=== PATIENT | male | born 1985 | race Caucasian/White ===

== ENCOUNTER 2017-12-03 10:12 | Inpatient (IN) | payer MEDICAID, OTHER ==
[~2017-12-03] VITALS: Ht 188 cm; Wt 147.4 kg
[~2017-12-03 10:12] MED LIST: IBUP-2269 PO
--- NOTE | 2017-12-03 10:26 | NUR ---
DR SANDRA AT THE BEDSIDE FOR MSE.
--- NOTE | 2017-12-03 11:08 | NUR ---
PAGED DR NYE FOR ADMIT, AWAITING CALL BACK.
--- NOTE | 2017-12-03 11:16 | NUR ---
MD AWARE OF PT'S ELEVATED BP, NO ORDERED RECIEVED.
[2017-12-03 11:29] LABS: BASOPHILS # (AUTO) 0.1 K/uL (0.0-8.0); EOSINOPHILS # (AUTO) 0.4 K/uL (0.0-0.7); EOSINOPHILS % (AUTO) 5.5 % (0.0-7.0); HEMATOCRIT 40.9 % (36.7-47.1); HEMOGLOBIN 13.5 g/dL (12.5-16.3); LYMPHOCYTES # (AUTO) 1.2 K/uL (20.0-40.0); LYMPHOCYTES % (AUTO) 15.2 % (20.5-51.5); MEAN CORPUSCULAR HEMOGLOBIN 29.5 uug (23.8-33.4); MEAN CORPUSCULAR HGB CONC 33 g/dL (32.5-36.3); MEAN CORPUSCULAR VOLUME 89.2 fL (73.0-96.2); MONOCYTES # (AUTO) 0.4 K/uL (2.0-10.0); MONOCYTES % (AUTO) 5.4 % (0.0-11.0); NEUTROPHILS # (AUTO) 5.6 K/uL (1.8-8.9); NEUTROPHILS % (AUTO) 72.9 % (38.5-71.5); PLATELET COUNT (AUTO) 216 K/uL (152-348); RED BLOOD CELL COUNT(AUTO) 4.58 MIL/uL (4.06-5.63); WHITE BLOOD COUNT (AUTO) 7.7 K/uL (3.6-10.2)
[2017-12-03 11:39] LABS: CREATININE 1.2 mg/dL (0.6-1.3); POTASSIUM 3.6 mmol/L (3.5-5.1)
[2017-12-03 11:54] LABS: BILIRUBIN,DIRECT 0.7 mg/dL (0.0-0.2); BILIRUBIN,TOTAL 1.7 mg/dL (0.2-1.0); TOTAL PROTEIN, SERUM 6.8 g/dL (6.4-8.2)
--- NOTE | 2017-12-03 12:10 | NUR ---
RECEIVED REPORT FROM ER NURSE, SAID THAT PATIENT WILL BE UP IN 20 MINS, DR MERRITT AWARE.
[2017-12-03] MEDS ORDERED: FUROSEMIDE 20 MG/2 ML VIAL IV ONE (12:15)
[2017-12-03] MEDS ORDERED: NITROGLYCERIN OINT 1 GM PACKET TP ONE ×2 (12:15→12:17)
[2017-12-03] MEDS ORDERED: FUROSEMIDE 40 MG/4 ML VIAL ONE (12:17)
[2017-12-03 12:45] VITALS: BP 172/119
--- NOTE | 2017-12-03 12:45 | NUR ---
RECEIVED PATIENT FROM ER VIA [facility] IN STABLE CONDITION. ABLE TO AMBULATE INDEPENDENTLY. C/O SOB, O2 SAT 94-97 ON ROOM AIR. OFFERED O2, BUT PT REFUSED SAID IT DOESNT DO ANYTHING. BLOOD PRESSURE STILL ELEVATED 172/119. NURSING ADMISSION ASSESSMENTS DONE. INFORMED DR MERRITT THAT PATIENT IS IN ROOM. WILL CONTINUE TO MONITOR.
[2017-12-03 15:14] VITALS: BP 143/89
[2017-12-03 15:22] LABS: *BILIRUBIN,URIN NEGATIVE (NEGATIVE); *BLOOD, URINE NEGATIVE (NEGATIVE); *CLARITY,URINE CLEAR (CLEAR); *COLOR,URINE YELLOW (YELLOW); *KETONES,URINE NEGATIVE (NEGATIVE); *PROTEIN,URINE 2+ (NEGATIVE); LEUKOCYTE ESTERASE ,URINE NEGATIVE (NEGATIVE); NITRITE, URINE NEGATIVE (NEGATIVE); PH,URINE 6.5 (5.0-8.0); UGLUCOSE NEGATIVE (NEGATIVE)
[2017-12-03 15:32] LABS: MUCUS,URINE FEW /LPF (0-FEW); WBC,URINE 0-3 /HPF (0-3)
[2017-12-03] MEDS: ALBUTEROL SULFATE 1.25 MG/3 ML NEBU NEB PRN ×2 (17:07→19:37)
--- NOTE | 2017-12-03 17:30 | NUR ---
PATIENT COMPLAINED OF SOB, GASPING FOR AIR, ANS IS WHEEZING, SAYS THAT ASTHMA IS ACTING UP. O2 SAT [address] INFOR[address] MERRITT WITH ORDERS FOR VENTOLIN UNIT DOSE Q4PRN. ORDERS NOTED AND CARRIED OUT. WILL CONTIUE TO MONITOR CLOSELY.
[2017-12-03] MEDS ORDERED: CARVEDILOL 6.25 MG TABLET PO SCH (19:00)
[2017-12-03] MEDS ORDERED: MORPHINE SULFATE 2 MG/1 ML DISP.SYRIN IV PRN (19:00)
[2017-12-03] MEDS ORDERED: LORAZEPAM 2 MG/1 ML VIAL IV PRN (19:00)
[2017-12-03] MEDS ORDERED: ONDANSETRON 4 MG/2 ML VIAL IV PRN (19:00)
[2017-12-03] MEDS ORDERED: ACETAMINOPHEN 325 MG TABLET PO PRN (19:00)
--- NOTE | 2017-12-03 19:18 | NUR ---
PATIENT STATED THAT HE STILL CAN'T BREATH AND IS FEELING SHORT OF BREATH, CHECKED O2 SAT 94-97%. PATIENT LOOKS ANXIOUS. ADMINISTERED ATIVAN 0.5 MG PRN. WILL CONTINUE TO MONITOR.
[2017-12-03 19:19] LABS: *AMPHETAMINE, URINE POSITIVE (NEGATIVE); *BARBITURATE, URINE NEGATIVE (NEGATIVE); *CANNABINOID, URINE NEGATIVE (NEGATIVE); *COCCAINE, URINE NEGATIVE (NEGATIVE); *OPIATE, URINE NEGATIVE (NEGATIVE); *PHENCYCLIDINE SCREEN,URINE NEGATIVE (NEGATIVE)
--- NOTE | 2017-12-03 19:30 | NUR ---
PT IN ROOM ALERT AWAKE WITH PERIODS OF SOB. REMINDED PT TO KEEP OXYGEN ON TO PREVENT RESP DISTRESS. SINUS TACHY NOTED ON TELEMETRY WITH 106 HR. FAMILY REQUESTING TO SEE MD. DR NYE MADE AWARE. CALL LIGHT PLACED WITHIN REACH. PLAN OF CARE GIVEN FOR THE NIGHT TO PT/FAMILY. VERBALIZED UNDERSTANDING.
[2017-12-03 20:00] VITALS: BP 157/106
[2017-12-03] MEDS: ENOXAPARIN SODIUM 40 MG/0.4 ML DISP.SYRIN SQ SCH (20:15)
[2017-12-03] MEDS: ZOLPIDEM 5 MG TABLET PO PRN (20:15)
[2017-12-03] MEDS ORDERED: CARVEDILOL 6.25 MG TABLET PO ONE (20:38)
[2017-12-03] MEDS ORDERED: ASPIRIN EC 325 MG TABLET.DR PO ONE (20:45)
[2017-12-03] MEDS ORDERED: FUROSEMIDE 20 MG/2 ML VIAL IV SCH (21:00)
[2017-12-03] MEDS ORDERED: POTASSIUM CHLORIDE 20 MEQ TAB.PRT.SR PO ONE (21:15)
[2017-12-03] MEDS ORDERED: CLOPIDOGREL 75 MG TABLET PO ONE (21:15)
[2017-12-03] MEDS ORDERED: CLONIDINE HCL 0.1 MG TABLET PO PRN (21:15)
[2017-12-03 21:45] LABS: ABG BASE EXCESS -1.7 mmol/L; ABG HCO3 22.3 mmol/L; ABG PCO2 35.5 mmHg (35.0-45.0); ABG PH 7.415 (7.350-7.450); ABG PO2 62.3 mmHg (75.0-100.0); ABG SITE RIGHT RADIAL; ABG TOTAL HEMOGLOBIN 13.8 G/dL (13.5-18.0); COHb 1.6 % (0.5-1.5); MetHb 0.4 % (0.0-1.5); O2Hb 89.7 % (94.0-97.0); VENT MODE Room Air
[2017-12-03] MEDS ORDERED: CLOPIDOGREL 75 MG TABLET ONE (21:58)
[2017-12-03] MEDS: FAMOTIDINE 20 MG TABLET PO SCH (22:02)
[2017-12-03] MEDS: ATORVASTATIN 40 MG TABLET PO SCH (22:03)
[2017-12-04 00:45] VITALS: BP 134/97
--- NOTE | 2017-12-04 01:00 | NUR ---
PT NOTED WITH PERIODS OF ANXIOUSNESS AND NOT MUCH SLEEP. NO RESP DISTRESS AT THIS TIME. RECENT O2 SAT NOTED 93% ON 6L/MIN VIA N/C. CONTINUE TO MONITOR.
[2017-12-04] MEDS: LORAZEPAM 2 MG/1 ML VIAL IV PRN ×4 (02:50→21:37)
[2017-12-04 04:00] VITALS: BP 125/88
--- NOTE | 2017-12-04 05:30 | NUR ---
PT SLEEPING AT THIS TIME IN NO RESP DISTRESS. SINUS RHYTHM NOTED WITH 93 BPM. OXYGEN SAT NOTED 92% WITH 6L/MIN VIA N/C. MOTHER AT BEDSIDE. ABP 125/88. ABLE TO SLEEP D/T RECENT ATIVAN GIVEN. CONTINUE TO MONITOR.
[2017-12-04 06:30] LABS: ABG BASE EXCESS -1.3 mmol/L; ABG HCO3 23.4 mmol/L; ABG PCO2 39.2 mmHg (35.0-45.0); ABG PH 7.393 (7.350-7.450); ABG PO2 61.2 mmHg (75.0-100.0); ABG SITE RIGHT RADIAL; ABG TOTAL HEMOGLOBIN 12.9 G/dL (13.5-18.0); COHb 1.7 % (0.5-1.5); MetHb 0.4 % (0.0-1.5); O2Hb 88.8 % (94.0-97.0); VENT MODE Nasal Cannula
--- NOTE | 2017-12-04 06:53 | NUR ---
ABGs OBTAINED BY RT. PT NEEDS FREQUENT REMINDERS TO KEEP OXYGEN ON. PT NOW ON 10L VIA NONREBREATHER MASK. CONTINUE TO MONITOR.
[2017-12-04] MEDS: LEVALBUTEROL HCL NEB 0.63 MG/3 ML NEBU NEB PRN ×2 (07:29→11:22)
[2017-12-04 07:40] LABS: THYROID STIMULATING HORMONE 2.422 mIU/mL (0.358-3.740)
[2017-12-04 07:51] LABS: BILIRUBIN,TOTAL 1.9 mg/dL (0.2-1.0); CREATININE 1.3 mg/dL (0.6-1.3); PHOSPHOROUS 4.5 mg/dL (2.5-4.9); POTASSIUM 4.3 mmol/L (3.5-5.1); TOTAL PROTEIN, SERUM 6.6 g/dL (6.4-8.2)
[2017-12-04 07:52] LABS: BASOPHILS # (AUTO) 0.1 K/uL (0.0-8.0); BASOPHILS % (AUTO) 0.9 % (0.0-2.0); EOSINOPHILS # (AUTO) 0.6 K/uL (0.0-0.7); EOSINOPHILS % (AUTO) 6.8 % (0.0-7.0); HEMATOCRIT 39.7 % (36.7-47.1); HEMOGLOBIN 13.2 g/dL (12.5-16.3); LYMPHOCYTES # (AUTO) 1.3 K/uL (20.0-40.0); LYMPHOCYTES % (AUTO) 16.2 % (20.5-51.5); MEAN CORPUSCULAR HEMOGLOBIN 29.7 uug (23.8-33.4); MEAN CORPUSCULAR HGB CONC 33 g/dL (32.5-36.3); MEAN CORPUSCULAR VOLUME 89.4 fL (73.0-96.2); MONOCYTES # (AUTO) 0.5 K/uL (2.0-10.0); MONOCYTES % (AUTO) 6.4 % (0.0-11.0); NEUTROPHILS # (AUTO) 5.6 K/uL (1.8-8.9); NEUTROPHILS % (AUTO) 69.7 % (38.5-71.5); PLATELET COUNT (AUTO) 212 K/uL (152-348); RED BLOOD CELL COUNT(AUTO) 4.44 MIL/uL (4.06-5.63); WHITE BLOOD COUNT (AUTO) 8.1 K/uL (3.6-10.2)
--- NOTE | 2017-12-04 07:55 | NUR ---
Awake, alert, on moderate high back rest. O2 at 10L/mask with O2 sat of 98%. HHN given. BLE +3 edema. Father at bedside, expressed concern, supportive. Tele SR [id number]
[2017-12-04] MEDS ORDERED: CARVEDILOL 12.5 MG TABLET PO SCH (08:00)
[2017-12-04] MEDS: ASPIRIN 325 MG TABLET PO SCH (08:42)
[2017-12-04] MEDS: FAMOTIDINE 20 MG TABLET PO SCH ×2 (08:42→20:00)
[2017-12-04] MEDS ORDERED: FAMOTIDINE 20 MG TABLET PO SCH (09:00)
[2017-12-04] MEDS ORDERED: FUROSEMIDE 40 MG/4 ML VIAL IV SCH (09:00)
--- NOTE | 2017-12-04 09:00 | NUR ---
Patient's condition and lab report relayed to Dr. Martinez with orders for CTA Chest. Consent signed by patient
[2017-12-04] MEDS ORDERED: IOHEXOL 350 100 ML INFUS..BTL ONE ×2 (09:29→10:40)
[2017-12-04] MEDS ORDERED: IV NORMAL SALINE 100 ML ONE (09:29)
--- NOTE | 2017-12-04 11:00 | NUR ---
CTA Chest done
--- NOTE | 2017-12-04 11:21 | NUR ---
Still with shortness of breath, called RT for HHN treatment. Restless and anxious. Ativan 1mg IV given.
[2017-12-04 11:44] VITALS: BP 110/71
[2017-12-04] MEDS: LEVALBUTEROL HCL NEB 0.63 MG/3 ML NEBU NEB SCH ×4 (12:49→22:58)
[2017-12-04] MEDS: IPRATROPIUM BROMIDE 0.5 MG/2.5 ML NEBU NEB SCH ×4 (12:49→22:58)
[2017-12-04] MEDS ORDERED: LORAZEPAM 2 MG/1 ML VIAL IV ONE (13:15)
--- NOTE | 2017-12-04 13:16 | NUR ---
Still with shortness of breath at 10L/mask and HHN given. Echo cardiogram done at bedside. Still restless after Ativan with orders for additional dose, given.
--- NOTE | 2017-12-04 15:00 | NUR ---
Sleeping, comfortable. O2 at 10L/mask on with O2 sat at 96%
[2017-12-04 15:42] VITALS: BP_SYST 108; BP_DIAS 73; BP_DIAS 82
[2017-12-04] MEDS: FUROSEMIDE 40 MG/4 ML VIAL IV SCH (18:07)
--- NOTE | 2017-12-04 18:38 | NUR ---
Restless. Ativan 1 mg IV given as ordered. O2 at 10L/mask, re instructed to wear. Family at bedside
--- NOTE | 2017-12-04 19:30 | NUR ---
PT MAINTAINING OXYGEN USING MASK SAT AT 97% ON 10L/MIN. PT REMINDED TO KEEP OXYGEN MASK ON TO PREVENT SOB. SINUS RHYTHM NOTED AT THIS TIME WITH V/S WNL. HOB ELEVATED AND ENCOURAGED PT TO USE URINAL WHEN POSSIBLE IN NEEDING TO VOID. FAMILY AT BEDSIDE. WILL CONTINUE TO MONITOR. ROUTINE BREATHING TX ON HAND AT THIS TIME.
[2017-12-04 20:00] VITALS: BP 127/89
[2017-12-04] MEDS: ATORVASTATIN 40 MG TABLET PO SCH (20:00)
[2017-12-04] MEDS: LISINOPRIL 10 MG TABLET PO SCH (20:02)
[2017-12-04] MEDS: ENOXAPARIN SODIUM 40 MG/0.4 ML DISP.SYRIN SQ SCH (20:03)
--- NOTE | 2017-12-04 21:30 | NUR ---
PT'S OXYGEN SATURATION INCREASED TO 15L VIA NONREBREATHING MASK. OXYGEN SATURATION MAINTAINED 94-97% PT APPEARS RESTLESS WITH PERIODS OF ANXIETY. ATIVAN 1MG GIVEN IV. ABLE TO TAKE ALL HS ROUTINE MEDICATIONS WITHOUT DIFFICULTY. PT NEEDS FREQUENT REMINDERS TO KEEP OXYGEN MASK ON. PT NOTED SOMETIMES NONCOMPLIANT REMOVING. MOTHER AT BEDSIDE. CALL LIGHT WITHIN REACH. WILL CONTINUE TO MONITOR.
[2017-12-04] MEDS: ZOLPIDEM 5 MG TABLET PO PRN (22:44)
--- NOTE | 2017-12-04 23:02 | NUR ---
PT ON 10L/MIN VIA MASK AT 97% OXGEN SAT.
--- NOTE | 2017-12-04 23:15 | NUR ---
O2 SAT NOTED 80-88%. PT BACK ON NON REBREATHER MASK AT 15L/MIN.
[2017-12-05] VITALS: BP 105/63
[2017-12-05] MEDS: methylPREDNISolone SOD SUCC 40 MG/ML VIAL IV SCH ×4 (00:23→21:58)
[2017-12-05] MEDS: FUROSEMIDE 40 MG/4 ML VIAL IV SCH ×3 (00:59→16:53)
[2017-12-05] MEDS ORDERED: LEVOFLOXACIN 750MG/D5W 150 ML IV ONE (01:16)
[2017-12-05] MEDS: LEVOFLOXACIN 750MG/D5W 750 MG in PREMIXED 1 EACH IV SCH ×2 (01:24→22:00)
[2017-12-05] MEDS: LORAZEPAM 2 MG/1 ML VIAL IV PRN (01:50)
[2017-12-05 04:00] VITALS: BP 125/72
[2017-12-05] MEDS: LEVALBUTEROL HCL NEB 0.63 MG/3 ML NEBU NEB SCH ×6 (04:02→23:09)
[2017-12-05] MEDS: IPRATROPIUM BROMIDE 0.5 MG/2.5 ML NEBU NEB SCH ×6 (04:02→23:09)
--- NOTE | 2017-12-05 06:43 | NUR ---
Patient noncompliant with keeping nonrebreather mask on. Desat to low as 78%. Reminded pt to keep mask on. Mother and father at bedside alternating holding mask to face. Saturation is 94-98% with nonrebreather mask on at 15L. Reminded pt to use urinal for safety reasons as well as because pt desats when he gets up to the bathroom to urinate due to Lasix dosafe increase. Patient refuses to use urinal despite urging from family and staff.
--- NOTE | 2017-12-05 08:31 | NUR ---
Went in to fix tele box, not showing up on monitor. Pt sleeping and mother asked to not wake him since he did not sleep all night. educated on risk to not being monitored verbalized understanding. will continue to monitor
--- NOTE | 2017-12-05 08:48 | NUR ---
refusing labs at this time
[2017-12-05] MEDS: LISINOPRIL 10 MG TABLET PO SCH ×2 (09:00→21:58)
[2017-12-05] MEDS: ASPIRIN 325 MG TABLET PO SCH (09:29)
[2017-12-05] MEDS: FAMOTIDINE 20 MG TABLET PO SCH ×2 (09:29→21:57)
[2017-12-05 09:31] VITALS: BP 118/70
[2017-12-05 10:05] LABS: BASOPHILS % (AUTO) 0.2 % (0.0-2.0); HEMATOCRIT 40.8 % (36.7-47.1); HEMOGLOBIN 13.7 g/dL (12.5-16.3); LYMPHOCYTES # (AUTO) 0.4 K/uL (20.0-40.0); LYMPHOCYTES % (AUTO) 5.3 % (20.5-51.5); MEAN CORPUSCULAR HEMOGLOBIN 29.8 uug (23.8-33.4); MEAN CORPUSCULAR HGB CONC 34 g/dL (32.5-36.3); MEAN CORPUSCULAR VOLUME 88.9 fL (73.0-96.2); MONOCYTES % (AUTO) 0.5 % (0.0-11.0); NEUTROPHILS # (AUTO) 7.9 K/uL (1.8-8.9); PLATELET COUNT (AUTO) 242 K/uL (152-348); RED BLOOD CELL COUNT(AUTO) 4.59 MIL/uL (4.06-5.63); WHITE BLOOD COUNT (AUTO) 8.4 K/uL (3.6-10.2)
[2017-12-05 10:14] LABS: CREATININE 1.4 mg/dL (0.6-1.3); PHOSPHOROUS 4.9 mg/dL (2.5-4.9)
[2017-12-05 11:15] VITALS: BP 138/89
--- NOTE | 2017-12-05 11:23 | NUR ---
Pt complains of severe abdominal pain. grasping left lower abdomen, restless and moaning. Pain medication given will endorse to MD.
--- NOTE | 2017-12-05 11:35 | NUR ---
pt non complaint, removing face mask, removed tele box. Very agitated and yelling at parents
[2017-12-05] MEDS ORDERED: MORPHINE SULFATE 2 MG/1 ML DISP.SYRIN IV PRN (12:00)
--- NOTE | 2017-12-05 12:19 | NUR ---
pT STILL MOANING, ASKED HOW PAIN WAS PT STATED IT IS THE SAME, EXPLAINED THAT DR ORDERED MORE MORPHINE. PT SAID HE WILL DEAL WITH THE PAIN AND DOES NOT WANT ANY MORPHINE BECAUSE "IT IS ADDICTING" AND HE IS "TRYING TO GET AWAY FROM THAT STUFF"
[2017-12-05] MEDS ORDERED: HYDROCODONE/APAP 10-325 MG TABLET PO ONE (14:15)
[2017-12-05 16:04] VITALS: BP 115/55
[2017-12-05] MEDS: FLUTICASONE/VILANTEROL 1 EACH BLST.W.DEV INH SCH (16:08)
--- NOTE | 2017-12-05 16:09 | NUR ---
abad duran given now, pharmacy just brought
--- NOTE | 2017-12-05 18:07 | NUR ---
Patient has become more compliant, wearing tele monitor as ordered, removes face mask from time to time but sat 90% on RA. Family remains at bedside, denies pain since previous episode. Call light in reach will continue to monitor
--- NOTE | 2017-12-05 19:30 | NUR ---
Patient refusing monitoring and evaluation advisor at this time. Per report, patient has been NSR with no ectopy. Education attempted, however patient passive and refusing at this time. Will attempt again at later time. Addendum: 12/05/17 at 2031 by HONORIO SKINNER RN Instruction provided, patient cooperative.
--- NOTE | 2017-12-05 20:00 | NUR ---
Patient returned from walking with mother. Currently sitting in bed, cooperative and in positive mood, laughing and joking. States he feels much better since yesterday and denies any pain or SOB. No signs of acute distress. chronometer assembler placed, sinus tach with HR of 108 after recent ambulation, continue to monitor. On room air, SpO2 92-94%. SBAR report received from Rosendo Vuong RN at beginning of shift. Will continue plan of care.
[2017-12-05 20:24] VITALS: BP 153/101
[2017-12-05] MEDS: ATORVASTATIN 40 MG TABLET PO SCH (21:57)
[2017-12-05] MEDS: ENOXAPARIN SODIUM 40 MG/0.4 ML DISP.SYRIN SQ SCH (21:58)
[2017-12-05] MEDS: MORPHINE SULFATE 4 MG/1 ML DISP.SYRIN IV PRN (22:54)
[2017-12-06] VITALS: BP 118/88
[2017-12-06] MEDS: FUROSEMIDE 40 MG/4 ML VIAL IV SCH ×3 (00:42→15:45)
[2017-12-06] MEDS: IPRATROPIUM BROMIDE 0.5 MG/2.5 ML NEBU NEB SCH ×6 (03:12→23:06)
[2017-12-06] MEDS: LEVALBUTEROL HCL NEB 0.63 MG/3 ML NEBU NEB SCH ×6 (03:12→23:06)
[2017-12-06 04:00] VITALS: BP 123/85
[2017-12-06] MEDS: methylPREDNISolone SOD SUCC 40 MG/ML VIAL IV SCH ×3 (06:38→21:07)
--- NOTE | 2017-12-06 07:21 | NUR ---
No significant events overnight. Patient remained stable. Sinus tach/NSR, HR 90-105. BP stable. SpO2 and RR remained WNL on room air, no need for supplemental O2. Needs attended to. Call light within reach. SBAR report givent to Anthony Woodall RN.
[2017-12-06 07:45] LABS: BASOPHILS % (AUTO) 0.1 % (0.0-2.0); HEMATOCRIT 41.2 % (36.7-47.1); HEMOGLOBIN 13.7 g/dL (12.5-16.3); LYMPHOCYTES # (AUTO) 0.7 K/uL (20.0-40.0); LYMPHOCYTES % (AUTO) 5.1 % (20.5-51.5); MEAN CORPUSCULAR HEMOGLOBIN 29.2 uug (23.8-33.4); MEAN CORPUSCULAR HGB CONC 33 g/dL (32.5-36.3); MEAN CORPUSCULAR VOLUME 88.1 fL (73.0-96.2); MONOCYTES # (AUTO) 0.5 K/uL (2.0-10.0); MONOCYTES % (AUTO) 3.9 % (0.0-11.0); NEUTROPHILS # (AUTO) 12.2 K/uL (1.8-8.9); NEUTROPHILS % (AUTO) 90.9 % (38.5-71.5); PLATELET COUNT (AUTO) 257 K/uL (152-348); RED BLOOD CELL COUNT(AUTO) 4.68 MIL/uL (4.06-5.63); WHITE BLOOD COUNT (AUTO) 13.4 K/uL (3.6-10.2)
[2017-12-06 07:54] LABS: BILIRUBIN,TOTAL 1.6 mg/dL (0.2-1.0); CREATININE 1.3 mg/dL (0.6-1.3); MAGNESIUM 2.1 mg/dL (1.8-2.4); PHOSPHOROUS 4.5 mg/dL (2.5-4.9); POTASSIUM 4.1 mmol/L (3.5-5.1); TOTAL PROTEIN, SERUM 7.4 g/dL (6.4-8.2)
--- NOTE | 2017-12-06 08:00 | NUR ---
PATIENT IN ROOM WITH FAMILY, PT VERY RESTLESS AND VERBALLY AGGRESSIVE, WANTS TO GO OUT AND BUY FOOD OUTSIDE. ATTEMPTED TO GO DOWN ALONE CLOSELY MONITORED. SR ON MONITOR SATURATING 89% ON RA. PLACE ON O2 AT 4L NC SAT 95%. PRN ATIVAN GIVEN FOR TRYING TO GO OUT BY SELF. HOSPITAL SECURITY ALERTED.
[2017-12-06] MEDS: FAMOTIDINE 20 MG TABLET PO SCH ×2 (08:10→21:03)
[2017-12-06] MEDS: ASPIRIN 325 MG TABLET PO SCH (08:10)
[2017-12-06] MEDS: FLUTICASONE/VILANTEROL 1 EACH BLST.W.DEV INH SCH (08:11)
[2017-12-06] MEDS: LISINOPRIL 10 MG TABLET PO SCH ×2 (08:12→21:00)
--- NOTE | 2017-12-06 11:45 | NUR ---
NO LAB RESULTS WITH ABNORMALITIES AND PT HAD FAST HR OF 139 AS[address]IC, DR NYE NOTIFID SAID WILL REVIEW LABS.
[2017-12-06 11:48] VITALS: BP 132/81
--- NOTE | 2017-12-06 12:22 | NUR ---
SEEN BY DR Rae SIBLEY FOR PSYCH EVAL SEE NOTES FOR RECOMMENDATION. PATIENT AGREED WITH PLAN OF CARE. WILL FOLLOW-UP WITH [facility]
[2017-12-06] MEDS ORDERED: methylPREDNISolone SOD SUCC 40 MG/ML VIAL IV SCH (14:00)
[2017-12-06] MEDS: QUETIAPINE FUMARATE 25 MG TABLET PO SCH (14:52)
[2017-12-06 15:28] VITALS: BP 133/89
--- NOTE | 2017-12-06 17:04 | NUR ---
PATIENT APPEARS TO BE MORE COMPLIANT TOWARDS THE END OF THE DAY, NO SIGNS OF ACUTE PAIN CONTINUE WITH O2 4L NC SATURATING 95-97%. REMAINS SR ON MONITOR
--- NOTE | 2017-12-06 19:36 | NUR ---
OBSERVED TO BE RESTING IN BED WITH HOB UP AT THIS TIME. NO RESPIRATORY DISTRESS NOTED. TELE OBSERVED TO BE SINUS RHYTHM WITH HR AT 103. SAFETY MEASURES DELIVERED. CALL LIGHT WITHIN REACH. WILL CONTINUE TO MONITOR.
[2017-12-06 20:00] VITALS: BP 135/80
[2017-12-06] MEDS: MORPHINE SULFATE 4 MG/1 ML DISP.SYRIN IV PRN (20:57)
[2017-12-06] MEDS ORDERED: QUETIAPINE FUMARATE 100 MG TABLET PO SCH (21:00)
[2017-12-06] MEDS: ATORVASTATIN 40 MG TABLET PO SCH (21:03)
[2017-12-06] MEDS: ENOXAPARIN SODIUM 40 MG/0.4 ML DISP.SYRIN SQ SCH (21:06)
--- NOTE | 2017-12-06 21:23 | NUR ---
IV MORPHINE 4 MG PRN ADMINISTERED ORDERED FOR SEVERE PAIN. BP NOTED TO BE 112/86 PRIOR TO ADMINISTRATION. BP REASSESSED AFTER 10 MINUTES AND NOTED TO BE 100/74, 2100 LISINOPRIL HELD TO PREVENT A DECREASE IN BP. WILL CONTINUE TO MONITOR.
[2017-12-07] VITALS: BP 129/63
[2017-12-07] MEDS: FUROSEMIDE 40 MG/4 ML VIAL IV SCH ×3 (00:32→16:45)
[2017-12-07] MEDS: IPRATROPIUM BROMIDE 0.5 MG/2.5 ML NEBU NEB SCH ×4 (02:57→15:46)
[2017-12-07] MEDS: LEVALBUTEROL HCL NEB 0.63 MG/3 ML NEBU NEB SCH ×4 (02:57→15:30)
[2017-12-07 04:00] VITALS: BP 120/75
[2017-12-07] MEDS: methylPREDNISolone SOD SUCC 40 MG/ML VIAL IV SCH ×2 (05:31→13:22)
--- NOTE | 2017-12-07 06:30 | NUR ---
INTERMITTENT AGGRESSION NOTED THROUGHOUT SHIFT, EDUCATION PROVIDED TO BOTH PATIENT AND MOTHER AT BEDSIDE. PT APOLOGIZED AND STATED, "I DO NOT WANT TO BE MEAN BECAUSE YOU ARE HUMAN AND THIS IS COMING FROM THE BOTTOM OF MY HEART." AT THIS TIME, PT IS RESTING. VITAL SIGNS WNL. TELE NOTED TO BE SINUS RHYTHM WITH HR AT 99. BED IN LOW, LOCKED POSITION. CALL LIGHT WITHIN REACH. WILL ENDORSE TO DAY SHIFT NURSE.
[2017-12-07 07:07] LABS: CREATININE 1.3 mg/dL (0.6-1.3); MAGNESIUM 2.6 mg/dL (1.8-2.4); PHOSPHOROUS 4.5 mg/dL (2.5-4.9); POTASSIUM 4.1 mmol/L (3.5-5.1)
[2017-12-07 07:22] LABS: BASOPHILS % (AUTO) 0.1 % (0.0-2.0); HEMATOCRIT 43.2 % (36.7-47.1); HEMOGLOBIN 14.1 g/dL (12.5-16.3); LYMPHOCYTES # (AUTO) 0.7 K/uL (20.0-40.0); LYMPHOCYTES % (AUTO) 4.6 % (20.5-51.5); MEAN CORPUSCULAR HGB CONC 33 g/dL (32.5-36.3); MONOCYTES # (AUTO) 0.9 K/uL (2.0-10.0); NEUTROPHILS # (AUTO) 13.4 K/uL (1.8-8.9); NEUTROPHILS % (AUTO) 89.3 % (38.5-71.5); PLATELET COUNT (AUTO) 255 K/uL (152-348); RED BLOOD CELL COUNT(AUTO) 4.85 MIL/uL (4.06-5.63)
--- NOTE | 2017-12-07 08:00 | NUR ---
RESTING IN BED WITH EYES CLOSE NO SIGNS OF PAIN, DISTRESS, OR SOB. ST ON MONITOR
[2017-12-07] MEDS: FLUTICASONE/VILANTEROL 1 EACH BLST.W.DEV INH SCH (08:42)
[2017-12-07] MEDS: FAMOTIDINE 20 MG TABLET PO SCH (08:43)
[2017-12-07] MEDS: ASPIRIN 325 MG TABLET PO SCH (08:43)
[2017-12-07] MEDS: LISINOPRIL 10 MG TABLET PO SCH (08:44)
[2017-12-07] MEDS ORDERED: QUETIAPINE FUMARATE 25 MG TABLET PO SCH (09:00)
--- NOTE | 2017-12-07 10:30 | NUR ---
ASSISTED FOR SHOWER PER PATIENT REQUEST "FEEL A LOT BETTER" PATIENT MORE COOPERATIVE AND NO SIGNS OG AGITATION
[2017-12-07 11:08] VITALS: BP 125/79
[2017-12-07] MEDS: QUETIAPINE FUMARATE 25 MG TABLET PO SCH (13:21)
--- NOTE | 2017-12-07 13:42 | NUR ---
RESTING COMFORTABLY IN BED ,AWAKE MOST OF THE TIME WITH FAMILY AROUND VERY SUPPORTIVE WITH CARE. NO SIGNS OF SEVERE AGITATION OR ANXIETY
[2017-12-07 15:17] VITALS: BP 132/84
--- NOTE | 2017-12-07 16:36 | NUR ---
SEEN BY DR NYE SEE NOTES. DC PLANNING INITIATED BY TIMBER FELLER. ST ON MONITOR
[2017-12-07] MEDS ORDERED: ALBU8.5H8 INH (16:55)
[2017-12-07] MEDS ORDERED: QUET25TA PO (16:55)
[2017-12-07] MEDS ORDERED: LISI10TA5 PO (16:55)
[2017-12-07] MEDS ORDERED: METH4TAB3 PO (16:55)
[2017-12-07] MEDS ORDERED: QUET50TA PO (16:55)
[2017-12-07] MEDS ORDERED: ATOR20TA PO (16:55)
[2017-12-07] MEDS ORDERED: ASPI-612 PO (16:55)
[2017-12-07] MEDS ORDERED: MULT1TAB73 PO (16:55)
[2017-12-07] MEDS ORDERED: FURO-151 PO (16:55)
--- NOTE | 2017-12-07 17:00 | NUR ---
seen by dr rios with dc order, manager of case management made aware. will call dr luke tomorrow friday for follow-up appt.
--- NOTE | 2017-12-07 18:22 | NUR ---
dc home stable accompanied by mother stable.
[2017-12-11] MEDS ORDERED: ASPI81TA31 PO (11:14)
[2017-12-11] MEDS ORDERED: CARV3.122 PO (11:14)
[2017-12-11] MEDS ORDERED: BUPR-96 PO (11:14)
[2017-12-11] MEDS ORDERED: FURO40TA5 PO (11:14)
[2017-12-11] MEDS ORDERED: QUET100T PO (11:14)
== END 2017-12-07 18:20 | disposition home or self-care (01) | DRG 194 ==
LOC: ER 10:12 → TELE 12:26
PROVIDERS: ADMIT Internal Medicine; ATTEND Internal Medicine
DX: I50.23 Acute on chronic systolic (congestive) heart failure (principal); J96.01 Acute respiratory failure with hypoxia; I21.A1 Myocardial infarction type 2; N17.0 Acute kidney failure with tubular necrosis; F32.3 Major depressive disorder, single episode, severe with psychotic features; Z68.41 Body mass index [BMI] 40.0-44.9, adult; J45.901 Unspecified asthma with (acute) exacerbation; E66.01 Morbid (severe) obesity due to excess calories; Z71.3 Dietary counseling and surveillance; K76.0 Fatty (change of) liver, not elsewhere classified; F15.188 Other stimulant abuse with other stimulant-induced disorder; I42.8 Other cardiomyopathies; J20.9 Acute bronchitis, unspecified; B96.89 Other specified bacterial agents as the cause of diseases classified elsewhere; F17.210 Nicotine dependence, cigarettes, uncomplicated; F41.9 Anxiety disorder, unspecified; I34.0 Nonrheumatic mitral (valve) insufficiency; R73.03 Prediabetes
CPT/HCPCS: 36415; 36600; 70030-TC; 71045; 71275; 74018; 80307; 83735; 84100; 84443; 85025; 85730; 93005; 93307; 94640; 94664; A4663; J1650; J1940; J1956; J2060; J2270; J2920; J3490; J3590; J7050; J7614; Q9967

== ENCOUNTER 2017-12-08 23:44 | Inpatient (IN) | payer MEDICAID ==
[~2017-12-08] VITALS: Ht 188 cm; Wt 134.3 kg
[~2017-12-08 23:44] MED LIST changes: +ALBU8.5H8 INH; +ASPI-612 PO; +ATOR20TA PO; +FURO-151 PO; -IBUP-2269 PO; +LISI10TA5 PO; +METH4TAB3 PO; +MULT1TAB73 PO; +QUET25TA PO; +QUET50TA PO
--- NOTE | 2017-12-09 00:06 | NUR ---
PT IN BED. PT'S VISITOR AT BEDSIDE. PT BEGAN TO EXPERIENCE LOWER O2 SAT. PT PLACED ON 2 LTS OXYGEN VIA NASAL CANULA. MADE AWARE.
[2017-12-09] MEDS ORDERED: LORAZEPAM 2 MG/1 ML VIAL IV ONE (00:45)
[2017-12-09] MEDS ORDERED: LORAZEPAM 2 MG/1 ML VIAL ONE (00:49)
[2017-12-09 00:52] LABS: ABG BASE EXCESS 2.2 mmol/L; ABG HCO3 26.9 mmol/L; ABG PH 7.424 (7.350-7.450); ABG PO2 86.1 mmHg (75.0-100.0); ABG SITE RIGHT RADIAL; ABG TOTAL HEMOGLOBIN 15.7 G/dL (13.5-18.0); COHb 1.6 % (0.5-1.5); MetHb 0.4 % (0.0-1.5); O2Hb 94.9 % (94.0-97.0); VENT MODE Nasal Cannula
[2017-12-09 00:55] LABS: BASOPHILS # (AUTO) 0.1 K/uL (0.0-8.0); BASOPHILS % (AUTO) 0.4 % (0.0-2.0); EOSINOPHILS # (AUTO) 0.1 K/uL (0.0-0.7); EOSINOPHILS % (AUTO) 0.3 % (0.0-7.0); HEMATOCRIT 45.3 % (36.7-47.1); HEMOGLOBIN 14.9 g/dL (12.5-16.3); LYMPHOCYTES # (AUTO) 3.2 K/uL (20.0-40.0); LYMPHOCYTES % (AUTO) 18.8 % (20.5-51.5); MEAN CORPUSCULAR HEMOGLOBIN 29.1 uug (23.8-33.4); MEAN CORPUSCULAR HGB CONC 33 g/dL (32.5-36.3); MEAN CORPUSCULAR VOLUME 88.6 fL (73.0-96.2); MONOCYTES # (AUTO) 1.6 K/uL (2.0-10.0); MONOCYTES % (AUTO) 9.4 % (0.0-11.0); NEUTROPHILS % (AUTO) 71.1 % (38.5-71.5); PLATELET COUNT (AUTO) 281 K/uL (152-348); RED BLOOD CELL COUNT(AUTO) 5.11 MIL/uL (4.06-5.63); WHITE BLOOD COUNT (AUTO) 16.9 K/uL (3.6-10.2)
[2017-12-09 01:01] LABS: CREATININE 1.3 mg/dL (0.6-1.3); POTASSIUM 3.8 mmol/L (3.5-5.1)
[2017-12-09 01:13] LABS: BILIRUBIN,DIRECT 0.5 mg/dL (0.0-0.2); BILIRUBIN,TOTAL 1.1 mg/dL (0.2-1.0)
[2017-12-09] MEDS ORDERED: FUROSEMIDE 40 MG/4 ML VIAL ONE (01:14)
[2017-12-09] MEDS ORDERED: FUROSEMIDE 20 MG/2 ML VIAL IV ONE (01:15)
--- NOTE | 2017-12-09 01:20 | NUR ---
PT IN BED. PT'S MOTHER AT BEDSIDE. PT RESTING QUIETLY WITH EYES CLOSED.
[2017-12-09] MEDS ORDERED: ASPIRIN 325 MG TABLET ONE (01:26)
[2017-12-09] MEDS ORDERED: ASPIRIN 325 MG TABLET PO ONE (01:30)
--- NOTE | 2017-12-09 02:15 | NUR ---
REPORT GIVEN TO BENNETT LAND.
[2017-12-09] MEDS ORDERED: NITROGLYCERIN OINT 1 GM PACKET TP PRN (02:30)
[2017-12-09] MEDS ORDERED: NITROGLYCERIN 0.4 MG/TAB BOTTLE SL PRN (02:30)
--- NOTE | 2017-12-09 02:40 | NUR ---
Pt. admitted to TELEMETRY, under care of Dr. NYE Belongs List completed
[2017-12-09] MEDS ORDERED: methylPREDNISolone 1 PACK TAB.DS.PK [4MG TAB] PO SCH (02:45)
[2017-12-09] MEDS ORDERED: QUETIAPINE FUMARATE 25 MG TABLET PO PRN (02:45)
[2017-12-09 02:57] VITALS: BP 142/99
[2017-12-09] MEDS ORDERED: ALBUTEROL SULFATE 2.5 MG/3 ML NEBU NEB PRN (03:00)
--- NOTE | 2017-12-09 03:06 | NUR ---
Admitted to Tele, Dx CHF w/ Elevated Troponin. Patient asleep at this time, no signs of distress. O2 3L/NC in use O2Sat 95%. Sinus tachy on the monitor HR 103 bpm. Patient's mother at bedside.
[2017-12-09] MEDS: ENOXAPARIN SODIUM 30 MG/0.3 ML DISP.SYRIN SQ SCH ×2 (03:35→20:48)
--- NOTE | 2017-12-09 04:10 | NUR ---
Urine specimen sent to the lab.
[2017-12-09] MEDS: FUROSEMIDE 40 MG/4 ML VIAL IV SCH ×2 (05:24→13:02)
[2017-12-09 05:47] VITALS: BP 143/99
--- NOTE | 2017-12-09 06:23 | NUR ---
Patient remains asleep, no distress noted. Lasix 60mg IVP adm. Vital signs WNL. Sinus tachy on the monitor.
[2017-12-09 08:12] LABS: *AMPHETAMINE, URINE NEGATIVE (NEGATIVE); *BARBITURATE, URINE NEGATIVE (NEGATIVE); *CANNABINOID, URINE NEGATIVE (NEGATIVE); *COCCAINE, URINE NEGATIVE (NEGATIVE); *OPIATE, URINE NEGATIVE (NEGATIVE); *PHENCYCLIDINE SCREEN,URINE NEGATIVE (NEGATIVE)
[2017-12-09] MEDS: MULTIVITAMINS,THERAPEUTIC TABLET PO SCH (08:37)
[2017-12-09] MEDS ORDERED: ASPIRIN EC 325 MG TABLET.DR PO SCH (09:00)
[2017-12-09] MEDS ORDERED: LISINOPRIL 10 MG TABLET PO SCH (09:00)
[2017-12-09 11:55] VITALS: BP 136/92
[2017-12-09] MEDS ORDERED: methylPREDNISolone 4 MG TABLET (DAY#3, PC LUNCH) PO ONE (12:30)
[2017-12-09] MEDS ORDERED: MORPHINE SULFATE 2 MG/1 ML DISP.SYRIN IV PRN (16:15)
--- NOTE | 2017-12-09 16:15 | NUR ---
PT OBSERVED SITTING AT THE EDGE OF THE BED. GRASPING AT ABDOMEN, GRIMACING AND C/O PAIN 10/10. PT IS ANGRY, HYPERVERBAL CUSSING, STATING THAT THE POMOLOGY TEACHER SHOULD SHOVE THE MEDICATION UP HIS ASS" PT IS AGITATED AND PULLED OFF THE TELE AND THREW IT ON THE FLOOR. POMOLOGY TEACHER NOTIFIED AND CONTINUE TO MONITOR.
[2017-12-09] MEDS ORDERED: MORPHINE SULFATE 4 MG/1 ML DISP.SYRIN IV PRN (16:30)
--- NOTE | 2017-12-09 16:33 | NUR ---
PAIN MEDICATION MORPHINE ORDERED AND GIVEN TO PT. MEDICATION EFFECTIVE. PT REFUSES TO PLACE TELE BACK ON AT THIS TIME.
[2017-12-09] MEDS ORDERED: LORAZEPAM 1 MG TABLET PO PRN (17:30)
[2017-12-09] MEDS ORDERED: methylPREDNISolone 4 MG TABLET (DAY#3, PC DINNER) PO ONE (17:30)
[2017-12-09] MEDS: CARVEDILOL 3.125 MG TABLET PO SCH (18:04)
--- NOTE | 2017-12-09 19:06 | NUR ---
PT OBSERVED RESTING IN BED WITH FATHER AT THE BEDSIDE. PT NOT C/O PAIN AT THIS TIME. NO SIGNS OF RESPIRATORY DISTRESS NOTED. US OF ABDOMEN PENDING FOR TOMORROW. CONTINUE TO MONITOR.
[2017-12-09 19:14] LABS: MAGNESIUM 2.3 mg/dL (1.8-2.4); POTASSIUM 4.1 mmol/L (3.5-5.1)
[2017-12-09 20:00] VITALS: BP 139/101
[2017-12-09] MEDS: ATORVASTATIN 20 MG TABLET PO SCH (20:45)
[2017-12-09] MEDS ORDERED: methylPREDNISolone 4 MG TABLET (DAY#3, HS) PO ONE (21:00)
[2017-12-09] MEDS ORDERED: QUETIAPINE FUMARATE 25 MG TABLET PO SCH (21:00)
[2017-12-10 04:00] VITALS: BP 135/97
--- NOTE | 2017-12-10 05:01 | NUR ---
Pt doing well last night. Often ambulating in the hallway. Reminded pt to wear oxygen while in bed and to use urinal rather than walking to bathroom to conserve energy and maintain oxygen saturation. Pt showered last night. No episode of SOB, denies pain except for the cramping in the abdomen. Kept NPO after midnight and will have abdominal ultrasound in the morning. Compliant with medications and care. Call light within reach.
[2017-12-10 05:24] LABS: BASOPHILS % (AUTO) 0.3 % (0.0-2.0); EOSINOPHILS # (AUTO) 0.1 K/uL (0.0-0.7); EOSINOPHILS % (AUTO) 0.8 % (0.0-7.0); HEMATOCRIT 48.5 % (36.7-47.1); HEMOGLOBIN 16.3 g/dL (12.5-16.3); LYMPHOCYTES # (AUTO) 1.6 K/uL (20.0-40.0); LYMPHOCYTES % (AUTO) 10.9 % (20.5-51.5); MEAN CORPUSCULAR HEMOGLOBIN 29.5 uug (23.8-33.4); MEAN CORPUSCULAR HGB CONC 34 g/dL (32.5-36.3); MEAN CORPUSCULAR VOLUME 87.5 fL (73.0-96.2); MONOCYTES % (AUTO) 6.9 % (0.0-11.0); NEUTROPHILS % (AUTO) 81.1 % (38.5-71.5); PLATELET COUNT (AUTO) 278 K/uL (152-348); RED BLOOD CELL COUNT(AUTO) 5.54 MIL/uL (4.06-5.63); WHITE BLOOD COUNT (AUTO) 14.8 K/uL (3.6-10.2)
[2017-12-10] MEDS ORDERED: methylPREDNISolone 4 MG TABLET (DAY#4, ACB) PO ONE (07:30)
--- NOTE | 2017-12-10 07:30 | NUR ---
Received report from entomology teacher nurse, patient in bed asleep, no distress noted at this time, bed in low position, side rails up x2.
[2017-12-10] MEDS: MULTIVITAMINS,THERAPEUTIC TABLET PO SCH (09:07)
[2017-12-10] MEDS: CARVEDILOL 3.125 MG TABLET PO SCH ×2 (09:07→17:10)
[2017-12-10] MEDS: ASPIRIN 81 MG TAB.CHEW PO SCH (09:07)
[2017-12-10] MEDS: FUROSEMIDE 40 MG TABLET PO SCH ×2 (09:08→17:10)
[2017-12-10] MEDS: LISINOPRIL 10 MG TABLET PO SCH (09:08)
--- NOTE | 2017-12-10 09:30 | NUR ---
Patient's mother brought in [employer] to patient. Patient and family were notified that the patient was on a therapeutic diet, and it is better to not bring in salty foods, or foods that contain fat/cholesterol.
[2017-12-10 11:20] VITALS: BP 137/89
[2017-12-10] MEDS ORDERED: methylPREDNISolone 4 MG TABLET (DAY#4, PC LUNCH) PO ONE (12:30)
[2017-12-10] MEDS: buPROPion XL 150 MG TAB.SR.24H PO SCH (15:19)
[2017-12-10 15:35] VITALS: BP 125/88
--- NOTE | 2017-12-10 18:43 | NUR ---
PATIENT HAS BEEN COOPERATIVE WITH CARE. NO DISTRESS NOTED THROUGHOUT THE SHIFT. PATIENT HAS BEEN SLEEPING FREQUENTLY THROUGHOUT THE SHIFT BETWEEN MEALS. CURRENTLY IN BED, NO DISTRESS NOTED.
[2017-12-10 20:54] VITALS: BP 135/95
[2017-12-10] MEDS ORDERED: QUETIAPINE FUMARATE 25 MG TABLET PO SCH (21:00)
[2017-12-10] MEDS ORDERED: QUETIAPINE FUMARATE 100 MG TABLET PO SCH (21:00)
[2017-12-10] MEDS ORDERED: methylPREDNISolone 4 MG TABLET (DAY#4, HS) PO ONE (21:00)
[2017-12-10] MEDS ORDERED: TRAZODONE 50 MG TABLET PO SCH (21:00)
--- NOTE | 2017-12-10 21:00 | NUR ---
PT'S A/A/O X4;DENIED OF PAIN OR ANY DISCOMFORT.PER PT REQUESTED TO TAKE A SHOWER AT THIS TIME;PT STATED THAT" I FEEL TOTALLY BETTER AFTER TOOK A SHOWER".NIGHT MEDICATION'S GIVEN TO PT AT THIS TIME;PT TOLERATED WELL NOTED.KEPT COMFORT.CALL-LIGHT WITHIN REACH.
[2017-12-10] MEDS: ATORVASTATIN 20 MG TABLET PO SCH (21:04)
[2017-12-10] MEDS: ENOXAPARIN SODIUM 30 MG/0.3 ML DISP.SYRIN SQ SCH (21:06)
[2017-12-11 05:10] VITALS: BP 138/98
--- NOTE | 2017-12-11 06:00 | NUR ---
PT'S COMFORTABLE ON BED;DENIED OF PAIN OR ANY DISCOMFORT AT THIS TIME,PT STATED THAT HE HAD A GOOD SLEEP TONIGHT.O2 SAT'S 94% WITH ROOM AIR;NO SOB'S SEEN IN THE SHIFT.
[2017-12-11] MEDS ORDERED: methylPREDNISolone 4 MG TABLET (DAY#5, ACB) PO ONE (07:30)
--- NOTE | 2017-12-11 07:52 | NUR ---
PATIENT RESTING COMFORTABLY IN BED AT THIS TIME. NO S/S OF DISTRESS. STABLE CONDITION. AMBULATORY. A/OX4. BED IN LOCKED/LOW POSITION, SIDE RAILS UP X2, CALL LIGHT WITHIN REACH.
[2017-12-11 08:58] VITALS: BP 126/75
[2017-12-11] MEDS: CARVEDILOL 3.125 MG TABLET PO SCH (09:02)
[2017-12-11] MEDS: LISINOPRIL 10 MG TABLET PO SCH (09:03)
[2017-12-11] MEDS: MULTIVITAMINS,THERAPEUTIC TABLET PO SCH (09:03)
[2017-12-11] MEDS: ASPIRIN 81 MG TAB.CHEW PO SCH (09:03)
[2017-12-11] MEDS: FUROSEMIDE 40 MG TABLET PO SCH (09:03)
[2017-12-11] MEDS: buPROPion XL 150 MG TAB.SR.24H PO SCH (09:03)
[2017-12-11] MEDS ORDERED: CARV3.122 PO (11:14)
[2017-12-11] MEDS ORDERED: BUPR-96 PO (11:14)
[2017-12-11] MEDS ORDERED: FURO40TA5 PO (11:14)
[2017-12-11] MEDS ORDERED: QUET100T PO (11:14)
[2017-12-11] MEDS ORDERED: ASPI81TA31 PO (11:14)
[2017-12-11 11:44] VITALS: BP 129/81
--- NOTE | 2017-12-11 12:13 | NUR ---
PATIENT DISCHARGED HOME AT THIS TIME IN STABLE CONDITION, NO S/S OF DISTRESS. VITAL SIGNS STABLE. DISCHARGE INSTRUCTIONS/EDUCATION PROVIDED TO PATIENT. DISCHARGE DOCUMENTATION COMPLETED BY MD AND NURSE. BELONGINGS CHECKLIST CHECKED AND SIGNED. IV DISCONNECTED, ID BAND TAKEN OFF. WRITTEN MEDICATION PRESCRIPTION GIVEN TO PATIENT. PATIENT WAS ABLE TO AMBULATE DOWNSTAIRS. FORM OF TRANSPORTATION IS PATIENT'S MOTHER. PATIENT LEFT HOSPITAL FLOOR IN SAFE CONDITION.
[2017-12-11] MEDS ORDERED: methylPREDNISolone 4 MG TABLET (DAY#5, HS) PO ONE (21:00)
[2017-12-12] MEDS ORDERED: methylPREDNISolone 4 MG TABLET (DAY#6, ACB) PO ONE (07:30)
== END 2017-12-11 12:13 | disposition home or self-care (01) | DRG 194 ==
LOC: ER 23:46 → TELE 12-09 02:00 → MED 12-09 18:05
PROVIDERS: ADMIT Internal Medicine; ATTEND Nurse Practitioner Acute Care
DX: I50.23 Acute on chronic systolic (congestive) heart failure (principal); I21.A1 Myocardial infarction type 2; J96.01 Acute respiratory failure with hypoxia; I42.7 Cardiomyopathy due to drug and external agent; F15.11 Other stimulant abuse, in remission; F33.1 Major depressive disorder, recurrent, moderate; E66.01 Morbid (severe) obesity due to excess calories; F15.188 Other stimulant abuse with other stimulant-induced disorder; G47.00 Insomnia, unspecified; F17.210 Nicotine dependence, cigarettes, uncomplicated; J45.909 Unspecified asthma, uncomplicated; Z79.51 Long term (current) use of inhaled steroids; Z68.38 Body mass index [BMI] 38.0-38.9, adult; E80.6 Other disorders of bilirubin metabolism; D72.829 Elevated white blood cell count, unspecified; T38.0X5A Adverse effect of glucocorticoids and synthetic analogues, initial encounter; Y92.009 Unspecified place in unspecified non-institutional (private) residence as the place of occurrence of the external cause; R10.9 Unspecified abdominal pain; R25.2 Cramp and spasm; Z91.048 Other nonmedicinal substance allergy status; Z79.899 Other long term (current) drug therapy
CPT/HCPCS: 36415; 36600; 70030-TC; 71045; 76700; 80307; 83735; 85025; 85730; 93005; A4663; J1650; J1940; J2060; J2270; J7030; J7509

== ENCOUNTER 2018-07-23 16:08 | Inpatient (IN) | payer MEDICAID, OTHER ==
[~2018-07-23] VITALS: Ht 188 cm; Wt 122.3 kg
[~2018-07-23 16:08] MED LIST changes: +ASPI81TA31 PO; +BUPR-96 PO; +CARV3.122 PO; +FURO40TA5 PO; +QUET100T PO
[2018-07-23] MEDS ORDERED: AMIO200T PO (16:24)
[2018-07-23] MEDS ORDERED: LISI-607 PO (16:24)
[2018-07-23] MEDS ORDERED: FURO-152 PO (16:24)
[2018-07-23] MEDS ORDERED: METF-440 PO (16:24)
[2018-07-23] MEDS ORDERED: SPIR25TA6 PO (16:24)
[2018-07-23] MEDS ORDERED: INSU200I SQ (16:24)
[2018-07-23] MEDS ORDERED: SITA100T PO (16:24)
[2018-07-23] MEDS ORDERED: METO50TA16 PO (16:24)
--- NOTE | 2018-07-23 16:26 | NUR ---
PT IS IN ROOM #1A. DR MOTTA EVALUATED THE PT.
[2018-07-23] MEDS ORDERED: ONDANSETRON 4 MG/2 ML VIAL IV ONE (16:45)
[2018-07-23] MEDS ORDERED: IV NORMAL SALINE 1000 ML BAG IV ONE (16:45)
[2018-07-23 16:50] LABS: BASOPHILS # (AUTO) 0.1 K/uL (0.0-8.0); BASOPHILS % (AUTO) 0.8 % (0.0-2.0); EOSINOPHILS # (AUTO) 0.2 K/uL (0.0-0.7); EOSINOPHILS % (AUTO) 1.9 % (0.0-7.0); HEMATOCRIT 51.3 % (36.7-47.1); HEMOGLOBIN 17.2 g/dL (12.5-16.3); LYMPHOCYTES # (AUTO) 1.3 K/uL (20.0-40.0); MEAN CORPUSCULAR HEMOGLOBIN 31.3 uug (23.8-33.4); MEAN CORPUSCULAR HGB CONC 34 g/dL (32.5-36.3); MEAN CORPUSCULAR VOLUME 93.1 fL (73.0-96.2); MONOCYTES # (AUTO) 0.5 K/uL (2.0-10.0); MONOCYTES % (AUTO) 5.2 % (0.0-11.0); NEUTROPHILS # (AUTO) 6.9 K/uL (1.8-8.9); NEUTROPHILS % (AUTO) 77.1 % (38.5-71.5); PLATELET COUNT (AUTO) 185 K/uL (152-348); RED BLOOD CELL COUNT(AUTO) 5.51 MIL/uL (4.06-5.63); WHITE BLOOD COUNT (AUTO) 8.9 K/uL (3.6-10.2)
[2018-07-23 16:58] LABS: CREATININE 1.6 mg/dL (0.6-1.3); POTASSIUM 4.4 mmol/L (3.5-5.1)
[2018-07-23 17:10] LABS: BILIRUBIN,DIRECT 0.8 mg/dL (0.0-0.2); BILIRUBIN,TOTAL 2.7 mg/dL (0.2-1.0); TOTAL PROTEIN, SERUM 6.9 g/dL (6.4-8.2)
[2018-07-23] MEDS ORDERED: INSULIN REGULAR, HUMAN 300 UNIT/3 ML VIAL ONE (17:39)
[2018-07-23] MEDS ORDERED: FUROSEMIDE 40 MG/4 ML VIAL ONE (17:40)
[2018-07-23] MEDS ORDERED: FUROSEMIDE 20 MG/2 ML VIAL IV ONE (17:45)
[2018-07-23] MEDS ORDERED: INSULIN REGULAR, HUMAN 300 UNIT/3 ML VIAL IV ONE (17:45)
--- NOTE | 2018-07-23 18:15 | NUR ---
RECEIVED REPORT FROM RYAN GALINDO
--- NOTE | 2018-07-23 18:23 | NUR ---
REPORT WAS GIVEN TO SEWING MACHINE REPAIRER.
--- NOTE | 2018-07-23 18:28 | NUR ---
PT WAS TRANSFERED TO TELEMETRY ROOM #218.
--- NOTE | 2018-07-23 19:00 | NUR ---
ADMITTED A 33 YEARS OLD MALE WITH DIAGNOSIS OF CHF. PATIENT AAOX4. IN NO ACUTE DISTRESS. DENIES ANY PAIN OR SOB AT THIS TIME. O2 SAT AT 92% ON RA. NSR ON TELE AT 84/MIN. IV SITE ON RIGHT AC INTACT AND PATENT. ROUTINE ADMISSION CARE DONE. PLAN OF CARE INITIATED. SAFETY MEASURE INITIATED AND CALL RASMUSSEN WITHIN REACH. PATIENT MOTHER AT BEDSIDE.
[2018-07-23] MEDS ORDERED: FUROSEMIDE 40 MG/4 ML VIAL IVP SCH (19:30)
[2018-07-23 20:00] VITALS: BP 121/86
[2018-07-23] MEDS ORDERED: DEXTROSE 50% 50 ML DISP.SYRIN IV PRN (20:30)
[2018-07-23] MEDS: ATORVASTATIN 20 MG TABLET PO SCH (20:51)
[2018-07-23] MEDS: FUROSEMIDE 40 MG/4 ML VIAL IVP SCH (20:51)
[2018-07-23] MEDS: BLOOD SUGAR DIAGNOSTIC 1 EACH STRIP VI SCH (20:53)
[2018-07-23] MEDS: ENOXAPARIN SODIUM 30 MG/0.3 ML DISP.SYRIN SQ SCH (20:55)
[2018-07-23] MEDS: INSULIN REGULAR, HUMAN 300 UNITS/3 ML VIAL SQ PRN (20:55)
[2018-07-24] VITALS: BP 120/76
--- NOTE | 2018-07-24 00:18 | NUR ---
PATIENT COMPLAINING OF UPPER ABDOMINAL CRAMPS, SCALE PAIN 10/10. TELEPHONE CALL TO DOCTOR WILVER. ALSO INFORMED OF TROPONIN LEVEL OF 0.119. DR. PETTIT WITH ORDER TO GIVE PATIENT PROTONIX 40MG POX1 DOSE. ORDER READ BACK AND VERIFIED. WILL GIVE MEDICATION PER ORDER.
[2018-07-24] MEDS ORDERED: PANTOPRAZOLE SODIUM 40 MG TABLET.DR PO ONE (00:30)
[2018-07-24 05:00] VITALS: BP 117/86
[2018-07-24 06:14] LABS: BASOPHILS # (AUTO) 0.1 K/uL (0.0-8.0); BASOPHILS % (AUTO) 0.9 % (0.0-2.0); EOSINOPHILS # (AUTO) 0.3 K/uL (0.0-0.7); EOSINOPHILS % (AUTO) 3.8 % (0.0-7.0); HEMATOCRIT 50.1 % (36.7-47.1); HEMOGLOBIN 16.7 g/dL (12.5-16.3); LYMPHOCYTES # (AUTO) 1.8 K/uL (20.0-40.0); LYMPHOCYTES % (AUTO) 22.4 % (20.5-51.5); MEAN CORPUSCULAR HEMOGLOBIN 30.9 uug (23.8-33.4); MEAN CORPUSCULAR HGB CONC 34 g/dL (32.5-36.3); MEAN CORPUSCULAR VOLUME 92.5 fL (73.0-96.2); MONOCYTES # (AUTO) 0.5 K/uL (2.0-10.0); MONOCYTES % (AUTO) 6.7 % (0.0-11.0); NEUTROPHILS # (AUTO) 5.4 K/uL (1.8-8.9); NEUTROPHILS % (AUTO) 66.2 % (38.5-71.5); PLATELET COUNT (AUTO) 187 K/uL (152-348); RED BLOOD CELL COUNT(AUTO) 5.41 MIL/uL (4.06-5.63); WHITE BLOOD COUNT (AUTO) 8.1 K/uL (3.6-10.2)
--- NOTE | 2018-07-24 06:24 | NUR ---
PATIENT AAOX4. IN NO ACUTE DISTRESS. O2 SAT AT 98% ON RA. DENIES ANY SOB. NSR ON TELE AT 87/MIN. IV SITE ON RIGHT AC INTACT AND PATENT. NO FURTHER COMPLAIN OF ABDOMINAL CRAMPS. NEEDS ATTENDED TO AND MET. SAFETY MEASURE MAINTAINED AND CALL RASMUSSEN WITHIN REACH.
[2018-07-24] MEDS: BLOOD SUGAR DIAGNOSTIC 1 EACH STRIP VI SCH ×4 (06:32→21:08)
[2018-07-24 06:39] LABS: BILIRUBIN,TOTAL 2.5 mg/dL (0.2-1.0); CREATININE 1.5 mg/dL (0.6-1.3); POTASSIUM 3.5 mmol/L (3.5-5.1); TOTAL PROTEIN, SERUM 6.4 g/dL (6.4-8.2)
--- NOTE | 2018-07-24 07:36 | NUR ---
RECEIVED ASLEEP BUT EASILY AROUSABLE ON ROUNDS ALERT AND ORIENTED WHEN AWAKE DENIES PAIN OR DISCOMFORTS AT THIS TIME ON ROOM AIR WITH NO S/S OF SHORTNESS OF BREATH NO S/S OF HYPO/HYPERGLYCEMIC REACTIONS AT THIS TIME REMAIN ON FLUID RESTRICTIONS ORDERED PATIENT REEDUCATED AND EXPRESSED UNDERSTANDING WILL CONTINUE TO OBSERVE.
[2018-07-24] MEDS: INSULIN REGULAR, HUMAN 300 UNIT/3 ML VIAL SQ PRN ×3 (07:42→16:43)
[2018-07-24] MEDS: FUROSEMIDE 40 MG/4 ML VIAL IVP SCH ×2 (08:09→16:42)
[2018-07-24] MEDS: LINAGLIPTIN 5 MG TABLET PO SCH (08:09)
[2018-07-24] MEDS: LISINOPRIL 5 MG TABLET PO SCH (08:09)
[2018-07-24] MEDS ORDERED: AMIODARONE HCL 200 MG TABLET PO SCH (09:00)
[2018-07-24] MEDS ORDERED: Medication Not On Formulary EA (Sitagliptin Phosphate (Januvia) 100 MG) PO SCH (09:00)
[2018-07-24] MEDS ORDERED: METOPROLOL TARTRATE 50 MG TABLET PO SCH (09:00)
--- NOTE | 2018-07-24 09:01 | NUR ---
AWAKE ALERT AND ORIENTED APPETITE WAS GOOD FOR BREAKFAST 2 D ECHO COMPLETED ORDERED AND EF IS 25-30% WILL AWAIT FOR QUALITY ASSURANCE QA LAB ANALYST INPUT.
[2018-07-24 11:14] VITALS: BP 100/75
--- NOTE | 2018-07-24 12:00 | NUR ---
DR BLAIR HERE SEEN PATIENT WITH NEW ORDERS AND NOTED.PATIENT REMAINS ON FLUID RESTRICTIONS ORDERED EDUCATED AND WILL CONTINUE TO OBSERVE.
[2018-07-24] MEDS: ASPIRIN 81 MG TAB.CHEW PO SCH (12:21)
[2018-07-24] MEDS: SPIRONOLACTONE 25 MG TABLET PO SCH (12:21)
--- NOTE | 2018-07-24 13:36 | NUR ---
DIETARY NOTIFIED RE ORDER FOR 1000 ML OF FLUID RESTRICTIONS IN 24 HOURS SPOKE WITH JANET
[2018-07-24 15:18] VITALS: BP 100/65
[2018-07-24] MEDS: CARVEDILOL 6.25 MG TABLET PO SCH (17:14)
--- NOTE | 2018-07-24 18:00 | NUR ---
PATIENT REMAINS ON FLUID RESTRICTIONS ORDERED ENCOURAGED TO GET OUT OF BED AND WALK AROUND IN THE HALLWAY STATED NOT NOW WILL WALK LATER MADE COMFORTABLE AND WILL CONTINUE TO OBSERVE.
--- NOTE | 2018-07-24 19:05 | NUR ---
RECEIVED PATIENT LYING IN BED. AAOX4. IN NO ACUTE DISTRESS. DENIES ANY PAIN OR SOB. NSR ON TELE AT 76/MIN. FAMILY MEMBER AT BEDSIDE. IV SITE ON RIGHT AC REMAINS INTACT AND PATENT. NEEDS ASSESSED AND ATTENDED TO. SAFETY MEASURE INITIATED AND CALL RASMUSSEN WITHIN REACH.
[2018-07-24 20:00] VITALS: BP 88/55
[2018-07-24] MEDS: ATORVASTATIN 20 MG TABLET PO SCH (21:07)
[2018-07-24] MEDS: INSULIN REGULAR, HUMAN 300 UNITS/3 ML VIAL SQ PRN (21:10)
[2018-07-24] MEDS: ENOXAPARIN SODIUM 30 MG/0.3 ML DISP.SYRIN SQ SCH (21:10)
[2018-07-25] VITALS: BP 100/80
[2018-07-25 05:00] VITALS: BP 111/78
--- NOTE | 2018-07-25 06:07 | NUR ---
PATIENT AAOX4. IN NO ACUTE DISTRESS. O2 SAT AT 95% ON RA. DENIES ANY PAIN OR SOB. NSR ON TELE AT 76/MIN. IV SITE ON RIGHT AC INTACT AND PATENT. NEEDS ATTENDED TO AND MET. SAFETY MEASURE MAINTAINED AND CALL RASMUSSEN WITHIN REACH.
[2018-07-25] MEDS: BLOOD SUGAR DIAGNOSTIC 1 EACH STRIP VI SCH ×3 (06:32→17:27)
--- NOTE | 2018-07-25 07:30 | NUR ---
patient aware, denies discomfort. made aware of fluid restriction, verbalized understanding. compliant with care.
[2018-07-25] MEDS: INSULIN REGULAR, HUMAN 300 UNIT/3 ML VIAL SQ PRN ×3 (08:10→17:34)
[2018-07-25] MEDS: LINAGLIPTIN 5 MG TABLET PO SCH (08:23)
[2018-07-25] MEDS: CARVEDILOL 6.25 MG TABLET PO SCH ×2 (08:23→17:28)
[2018-07-25] MEDS: FUROSEMIDE 40 MG/4 ML VIAL IVP SCH ×2 (08:23→17:27)
[2018-07-25] MEDS: LISINOPRIL 5 MG TABLET PO SCH (08:23)
[2018-07-25] MEDS: SPIRONOLACTONE 25 MG TABLET PO SCH (08:24)
[2018-07-25] MEDS: ASPIRIN 81 MG TAB.CHEW PO SCH (08:31)
--- NOTE | 2018-07-25 09:30 | NUR ---
ambulatory on bed, tolerated well.
--- NOTE | 2018-07-25 11:00 | NUR ---
resting comfortable. aware plan for discharge today pending cardiology order. anxious to go home. parents at bedside, supportive of patient care.
[2018-07-25 11:50] VITALS: BP 113/80
--- NOTE | 2018-07-25 12:30 | NUR ---
appetite good, tolerating well. awaiting power operator for discharge.
--- NOTE | 2018-07-25 15:44 | NUR ---
sleeping on and off. no distress verbalized
[2018-07-25 16:00] VITALS: BP 110/83
[2018-07-25 17:28] VITALS: BP 119/90
--- NOTE | 2018-07-25 18:33 | NUR ---
discharge instruction provided to girlfriend and patient. verbalized understanding. left in stable condition with belongings and home instruction and follow up. Addendum: 07/25/18 at 1846 by JIMBO ANGELES RN ok to use lantus and lispro per pharmacy , chuck as per discharge order from dr vaughn.
== END 2018-07-25 18:35 | disposition home or self-care (01) | DRG 194 ==
LOC: ER 16:08 → TELE 18:33
PROVIDERS: ADMIT Internal Medicine; ATTEND Internal Medicine
DX: I11.0 Hypertensive heart disease with heart failure (principal); I21.A1 Myocardial infarction type 2; N17.0 Acute kidney failure with tubular necrosis; I50.23 Acute on chronic systolic (congestive) heart failure; I42.7 Cardiomyopathy due to drug and external agent; E11.65 Type 2 diabetes mellitus with hyperglycemia; E66.01 Morbid (severe) obesity due to excess calories; T43.621S Poisoning by amphetamines, accidental (unintentional), sequela; E78.5 Hyperlipidemia, unspecified; Z68.34 Body mass index [BMI] 34.0-34.9, adult; J45.909 Unspecified asthma, uncomplicated; Z79.4 Long term (current) use of insulin; I44.7 Left bundle-branch block, unspecified; I25.10 Atherosclerotic heart disease of native coronary artery without angina pectoris; Z79.899 Other long term (current) drug therapy; R11.2 Nausea with vomiting, unspecified; F15.11 Other stimulant abuse, in remission
CPT/HCPCS: 36415; 70030-TC; 71045; 85025; 85730; 93005; 93307; A4663; G0378; J1650; J1815; J1940; J7030

== ENCOUNTER 2023-07-28 02:59 | Inpatient (IN) | payer OTHER ==
[~2023-07-28] VITALS: Ht 188 cm; Wt 110.7 kg
[~2023-07-28 02:59] MED LIST changes: -ALBU8.5H8 INH; +AMIO200T PO; -ASPI-612 PO; -ASPI81TA31 PO; -BUPR-96 PO; -CARV3.122 PO; -FURO-151 PO; +FURO-152 PO; -FURO40TA5 PO; +INSU200I SQ; +LISI-782 PO; -LISI10TA5 PO; +METF-440 PO; -METH4TAB3 PO; +METO50TA16 PO; -MULT1TAB73 PO; -QUET100T PO; -QUET25TA PO; -QUET50TA PO; +SITA100T PO; +SPIR25TA6 PO
[2023-07-28] MEDS ORDERED: IPRATROPIUM BROMIDE 0.5 MG/2.5 ML NEBU NEB ONE (03:30)
[2023-07-28] MEDS ORDERED: ACETAMINOPHEN ES 500 MG TABLET PO ONE (03:30)
[2023-07-28] MEDS ORDERED: ALBUTEROL SULFATE 2.5 MG/3 ML NEBU NEB ONE (03:30)
[2023-07-28] MEDS ORDERED: predniSONE 20 MG TABLET PO ONE (03:30)
[2023-07-28] MEDS ORDERED: ACETAMINOPHEN ES 500 MG TABLET ONE (03:35)
[2023-07-28] MEDS ORDERED: predniSONE 50 MG TABLET ONE (03:36)
[2023-07-28] MEDS ORDERED: IPRATROPIUM BROMIDE 0.5 MG/2.5 ML NEBU ONE (03:44)
[2023-07-28] MEDS ORDERED: ALBUTEROL SULFATE 2.5 MG/3 ML NEBU ONE (03:44)
[2023-07-28 03:46] LABS: BASOPHILS # (AUTO) 0.1 K/UL (0.0-0.2); BASOPHILS % (AUTO) 0.7 % (0.0-2.0); HEMATOCRIT 50.1 % (36.7-47.1); LYMPHOCYTES # (AUTO) 0.6 K/uL (0.8-4.8); MEAN CORPUSCULAR HEMOGLOBIN 32.8 uug (23.8-33.4); MEAN CORPUSCULAR HGB CONC 36 g/dL (32.5-36.3); MONOCYTES # (AUTO) 0.9 K/uL (0.1-1.30); NEUTROPHILS # (AUTO) 5.7 K/uL (1.8-8.9); NEUTROPHILS % (AUTO) 77.7 % (38.5-71.5); PLATELET COUNT (AUTO) 175 K/uL (152-348); RED CELL DISTRIBUTION WIDTH 12.9 % (12.1-16.2); WHITE BLOOD COUNT (AUTO) 7.3 K/uL (3.6-10.2)
[2023-07-28 03:50] LABS: DIFFERENTIAL COMMENT 1
[2023-07-28 03:51] LABS: LYMPHOCYTES % (AUTO) 12.9 % (20.5-51.5); MONOCYTES % (AUTO) 8.7 % (0.0-11.0)
[2023-07-28 03:53] VITALS: O2SAT 95
[2023-07-28 04:01] LABS: CARBON DIOXIDE 26 mmol/L (21-32); CHLORIDE 96 mmol/L (98-107); CREATININE 1.3 mg/dL (0.6-1.3); GLUCOSE 161 mg/dL (74-106); SODIUM SERUM 133 mmol/L (136-145); UREA NITROGEN, BLOOD 12 mg/dL (7-18)
[2023-07-28 04:14] VITALS: O2SAT 96; O2SAT 99
[2023-07-28 04:15] LABS: ALANINE AMINOTRANSFERASE 55 U/L (16-63); ALBUMIN 4.2 g/dL (3.4-5.0); ALKALINE PHOSPHATASE 79 U/L (50-136); ASPARTATE AMINOTRANSFERASE 27 U/L (15-37); BILIRUBIN,DIRECT 0.6 mg/dL (0.0-0.2); BILIRUBIN,TOTAL 1.8 mg/dL (0.2-1.0); NT-PRO BNP 603 pg/mL (0-125); TOTAL PROTEIN, SERUM 7.5 g/dL (6.4-8.2)
[2023-07-28] MEDS ORDERED: OSELTAMIVIR PHOSPHATE 75 MG CAPSULE ONE ×2 (04:51→21:36)
[2023-07-28] MEDS ORDERED: ASPIRIN 325 MG TABLET ONE (04:52)
[2023-07-28] MEDS ORDERED: OSELTAMIVIR PHOSPHATE 75 MG CAPSULE PO ONE (05:00)
[2023-07-28] MEDS ORDERED: ASPIRIN 81 MG TAB.CHEW PO ONE (05:00)
[2023-07-28] MEDS ORDERED: FUROSEMIDE 20 MG/2 ML VIAL ONE (05:25)
[2023-07-28] MEDS ORDERED: FUROSEMIDE 20 MG/2 ML VIAL IV ONE (05:30)
[2023-07-28] MEDS ORDERED: MAGNESIUM HYDROXIDE 30 ML LIQUID UDC PO PRN (06:00)
[2023-07-28] MEDS ORDERED: REMEDY ESSENTIAL ZINC PASTE 113 GM TP PRN (06:00)
[2023-07-28] MEDS ORDERED: ONDANSETRON 4 MG/2 ML VIAL IV PRN (06:00)
[2023-07-28 10:15] LABS: *AMPHETAMINE, URINE NEGATIVE (NEGATIVE); *BARBITURATE, URINE NEGATIVE (NEGATIVE); *BENZODIAZEPINE, URINE NEGATIVE (NEGATIVE); *CANNABINOID, URINE NEGATIVE (NEGATIVE); *COCCAINE, URINE NEGATIVE (NEGATIVE); *OPIATE, URINE NEGATIVE (NEGATIVE); *PHENCYCLIDINE SCREEN,URINE NEGATIVE (NEGATIVE); FENTANYL, URINE NEGATIVE (NEGATIVE)
[2023-07-28] MEDS ORDERED: hydrALAZINE HCL 20 MG/1 ML VIAL ONE (12:52)
[2023-07-28] MEDS ORDERED: hydrALAZINE HCL 20 MG/1 ML VIAL IV PRN (13:00)
[2023-07-28] MEDS ORDERED: ACETAMINOPHEN 325 MG TABLET ONE (17:41)
[2023-07-28] MEDS: ACETAMINOPHEN 325 MG TABLET PO PRN (18:02)
[2023-07-28] MEDS ORDERED: PANTOPRAZOLE SODIUM 40 MG TABLET.DR PO ONE (19:39)
[2023-07-28] MEDS: PANTOPRAZOLE SODIUM 40 MG TABLET.DR PO SCH (19:40)
[2023-07-28] MEDS: OSELTAMIVIR PHOSPHATE 75 MG CAPSULE PO SCH (21:43)
[2023-07-29] VITALS (8 sets, daily range): BP systolic 94–147; BP diastolic 63–94; TEMP 97–97.8; O2SAT 91–97
[2023-07-29] MEDS: PANTOPRAZOLE SODIUM 40 MG TABLET.DR PO SCH (06:04)
[2023-07-29] MEDS: ACETAMINOPHEN 325 MG TABLET PO PRN (06:16)
[2023-07-29 07:38] LABS: BASOPHILS % (AUTO) 0.6 % (0.0-2.0); EOSINOPHILS % (AUTO) 0.3 % (0.0-7.0); HEMATOCRIT 49.9 % (36.7-47.1); HEMOGLOBIN 18.1 g/dL (12.5-16.3); LYMPHOCYTES # (AUTO) 1.6 K/uL (0.8-4.8); LYMPHOCYTES % (AUTO) 30.6 % (20.5-51.5); MEAN CORPUSCULAR HEMOGLOBIN 32.5 uug (23.8-33.4); MEAN CORPUSCULAR HGB CONC 36 g/dL (32.5-36.3); MEAN CORPUSCULAR VOLUME 89.5 fL (73.0-96.2); MONOCYTES # (AUTO) 0.7 K/uL (0.1-1.30); MONOCYTES % (AUTO) 13.9 % (0.0-11.0); NEUTROPHILS # (AUTO) 2.8 K/uL (1.8-8.9); NEUTROPHILS % (AUTO) 54.6 % (38.5-71.5); PLATELET COUNT (AUTO) 189 K/uL (152-348); RED BLOOD CELL COUNT(AUTO) 5.57 MIL/uL (4.06-5.63); RED CELL DISTRIBUTION WIDTH 12.7 % (12.1-16.2); WHITE BLOOD COUNT (AUTO) 5.1 K/uL (3.6-10.2)
[2023-07-29 07:48] LABS: CALCIUM 8.7 mg/dL (8.5-10.1); CREATININE 1.1 mg/dL (0.6-1.3); DIFFERENTIAL COMMENT 1; MAGNESIUM 2.2 mg/dL (1.8-2.4); PHOSPHOROUS 3.3 mg/dL (2.5-4.9); POTASSIUM 3.5 mmol/L (3.5-5.1)
[2023-07-29] MEDS: ASPIRIN EC 81 MG TABLET.DR PO SCH (08:40)
[2023-07-29] MEDS: LOSARTAN POTASSIUM 50 MG TABLET PO SCH ×2 (08:40→20:52)
[2023-07-29] MEDS: CARVEDILOL 6.25 MG TABLET PO SCH ×2 (08:41→16:20)
[2023-07-29 08:43] LABS: BILIRUBIN,DIRECT 0.5 mg/dL (0.0-0.2); BILIRUBIN,TOTAL 1.4 mg/dL (0.2-1.0); TOTAL PROTEIN, SERUM 7.4 g/dL (6.4-8.2)
[2023-07-29 08:52] LABS: THYROID STIMULATING HORMONE 8.555 mIU/mL (0.358-3.740)
[2023-07-29] MEDS: OSELTAMIVIR PHOSPHATE 75 MG CAPSULE PO SCH ×2 (08:59→20:53)
[2023-07-29 11:44] LABS: LYMPHOCYTES % (MANUAL) 38 % (20-40); MONOCYTES % (MANUAL) 15 % (2-10); NEUTROPHILS % (MANUAL) 47 % (42-75); PLATELET ESTIMATE ADEQUATE
[2023-07-29] MEDS ORDERED: IPRATROPIUM BROMIDE 0.5 MG/2.5 ML NEBU NEB PRN (15:30)
[2023-07-29] MEDS ORDERED: ALBUTEROL SULFATE 2.5 MG/3 ML NEBU NEB PRN (15:30)
[2023-07-29] MEDS: ATORVASTATIN 20 MG TABLET PO SCH (20:52)
[2023-07-30] VITALS (7 sets, daily range): BP systolic 97–117; BP diastolic 61–78; TEMP 97.1–98.2; O2SAT 91–98
[2023-07-30] MEDS: PANTOPRAZOLE SODIUM 40 MG TABLET.DR PO SCH (05:29)
[2023-07-30] MEDS ORDERED: AMIODARONE HCL IV 150 MG in IV DEXTROSE 5% 100 ML IV ONE (06:45)
[2023-07-30] MEDS: AMIODARONE HCL IV 450 MG in IV DEXTROSE 5% 250 ML IV PRN ×2 (07:41→16:24)
[2023-07-30] MEDS ORDERED: RIVAROXABAN 10 MG TABLET PO SCH ×2 (08:45→18:00)
[2023-07-30] MEDS: ASPIRIN EC 81 MG TABLET.DR PO SCH (08:50)
[2023-07-30] MEDS: CARVEDILOL 6.25 MG TABLET PO SCH ×2 (08:50→18:23)
[2023-07-30] MEDS: OSELTAMIVIR PHOSPHATE 75 MG CAPSULE PO SCH ×2 (08:51→20:41)
[2023-07-30] MEDS: METFORMIN HCL 500 MG TABLET PO SCH ×2 (08:55→18:22)
[2023-07-30] MEDS ORDERED: LOSARTAN POTASSIUM 50 MG TABLET PO SCH (09:00)
[2023-07-30] MEDS ORDERED: LOSARTAN POTASSIUM 25 MG TABLET PO SCH (09:00)
[2023-07-30] MEDS: ATORVASTATIN 20 MG TABLET PO SCH (20:40)
[2023-07-31 00:11] VITALS: BP 144/80; TEMP 98.6; O2SAT 95
[2023-07-31] MEDS: PANTOPRAZOLE SODIUM 40 MG TABLET.DR PO SCH (06:43)
[2023-07-31 06:53] VITALS: BP 120/78; TEMP 97.8; O2SAT 95
[2023-07-31 08:00] VITALS: BP 142/90; TEMP 98.1; O2SAT 95
[2023-07-31] MEDS ORDERED: CARVEDILOL 12.5 MG TABLET PO SCH (08:32)
[2023-07-31] MEDS: OSELTAMIVIR PHOSPHATE 75 MG CAPSULE PO SCH (09:07)
[2023-07-31] MEDS: ASPIRIN EC 81 MG TABLET.DR PO SCH (09:07)
[2023-07-31] MEDS: METFORMIN HCL 500 MG TABLET PO SCH (09:07)
[2023-07-31] MEDS ORDERED: RIVA10TA PO (10:41)
[2023-07-31] MEDS ORDERED: METF-440 PO (10:41)
[2023-07-31] MEDS ORDERED: OSEL75CA PO (10:41)
[2023-07-31] MEDS ORDERED: ASPI-618 PO (10:41)
[2023-07-31] MEDS ORDERED: ATOR20TA PO (10:41)
[2023-07-31] MEDS ORDERED: CARV12.52 PO (10:41)
[2023-07-31 11:30] VITALS: BP 110/86; TEMP 97.7; O2SAT 95
[2023-07-31] MEDS ORDERED: CARVEDILOL 6.25 MG TABLET PO SCH (18:00)
== END 2023-07-31 15:28 | disposition home or self-care (01) | DRG 190 ==
LOC: ER 04:22 → UNDOADMIN 07:00 → TRANSITION 07:00 → TELE3 20:41 → TELE-TD3 07-30 06:35 → TELE3 07-31 09:40
PROVIDERS: ADMIT Nurse Practitioner Family; ATTEND Internal Medicine
DX: I21.4 Non-ST elevation (NSTEMI) myocardial infarction (principal); I42.7 Cardiomyopathy due to drug and external agent; E11.65 Type 2 diabetes mellitus with hyperglycemia; J10.1 Influenza due to other identified influenza virus with other respiratory manifestations; I50.22 Chronic systolic (congestive) heart failure; E03.9 Hypothyroidism, unspecified; Z87.891 Personal history of nicotine dependence; T43.651S Poisoning by methamphetamines accidental (unintentional), sequela; F15.11 Other stimulant abuse, in remission; I48.0 Paroxysmal atrial fibrillation; I24.9 Acute ischemic heart disease, unspecified; E78.5 Hyperlipidemia, unspecified; E66.9 Obesity, unspecified; Z68.31 Body mass index [BMI] 31.0-31.9, adult; J45.909 Unspecified asthma, uncomplicated; I10 Essential (primary) hypertension
CPT/HCPCS: 36415; 70030-TC; 71045; 83605; 83735; 84100; 84443; 84481; 84484; 85025; 93005; 93307; 94664; A4663; A9150; G0378; J0282; J0360; J1940; J3590; J7050; J7512